=== PATIENT | male | born 1945 | race Caucasian/White ===

== ENCOUNTER 2020-12-09 09:47 | Outpatient (REF) | payer MEDICARE, OTHER, SELFPAY ==
[2020-12-09 10:00] LABS: MANUAL DIFF FLAG NO
[2020-12-09 10:02] LABS: Basophils Absolute Auto 0.1 X10*3/uL (0.0-0.2); Basophils Percent Auto 0.7 % (0-2); Eosinophils Absolute Auto 0.1 X10*3/uL (0.0-0.4); Imm Gran Abs Auto 0.02 X10*3/uL (0.00-0.03); Imm Gran Pct Auto 0.3 % (0.0-0.4); Lymphocytes Absolute Auto 1.4 X10*3/uL (1.2-4.9); Lymphocytes Percent Auto 19.8 % (20-40); Mean Corpuscular HGB Conc 34.9 g/dl (31.0-36.0); Mean Corpuscular Volume 100.5 fL (80-98); Mean Platelet Volume 10.5 fL (9.4-12.4); Monocytes Absolute Auto 0.6 X10*3/uL (0.1-1.2); Monocytes Percent Auto 8.7 % (2-11); Neutrophils Percent Auto 69.5 % (45-73); Platelet Count 211 X10*3/uL (160-400); Red Blood Count 4.28 X10*6/uL (4.60-5.80); Red Cell Distribution Width 12.9 % (11.0-16.0); White Blood Count 7.2 X10*3/uL (4.8-10.8)
[2020-12-09 10:33] LABS: Iron 148 mcg/dL (45-160); Percent Iron Saturation 59 % (15-50); Total Iron Binding Capacity 251 mcg/dL (228-428); Unsaturated Iron Binding 103 ug/dL
[2020-12-09 10:55] LABS: Ferritin 115 ng/mL (20-250)
== END 2020-12-09 09:48 | disposition home or self-care (01) ==
LOC: HO.BBR 09:47
PROVIDERS: Visit Provider Internal Medicine Hematology & Oncology
DX: E83.110 Hereditary hemochromatosis (principal)
CPT/HCPCS: 36415; 82728; 83540; 85025

== ENCOUNTER 2021-01-27 07:53 | Outpatient (REF) | payer MEDICARE, OTHER, SELFPAY ==
[2021-01-27 08:21] LABS: MANUAL DIFF FLAG NO
[2021-01-27 08:22] LABS: Basophils Absolute Auto 0.1 X10*3/uL (0.0-0.2); Basophils Percent Auto 1.2 % (0-2); Eosinophils Absolute Auto 0.1 X10*3/uL (0.0-0.4); Eosinophils Percent Auto 1.7 % (0-4); Hematocrit 42.8 % (42-52); Hemoglobin 14.9 g/dl (14.0-18.0); Imm Gran Abs Auto 0.01 X10*3/uL (0.00-0.03); Imm Gran Pct Auto 0.2 % (0.0-0.4); Lymphocytes Absolute Auto 1.3 X10*3/uL (1.2-4.9); Mean Corpuscular HGB Conc 34.8 g/dl (31.0-36.0); Mean Corpuscular Hemoglobin 35.2 pg (27.0-33.0); Mean Corpuscular Volume 101.2 fL (80-98); Mean Platelet Volume 10.5 fL (9.4-12.4); Monocytes Absolute Auto 0.7 X10*3/uL (0.1-1.2); Monocytes Percent Auto 11.4 % (2-11); Neutrophils Absolute Auto 3.6 X10*3/uL (2.0-8.3); Neutrophils Percent Auto 62.5 % (45-73); Platelet Count 199 X10*3/uL (160-400); Red Blood Count 4.23 X10*6/uL (4.60-5.80); Red Cell Distribution Width 12.5 % (11.0-16.0); White Blood Count 5.8 X10*3/uL (4.8-10.8)
[2021-01-27 09:24] LABS: Iron 147 mcg/dL (45-160); Percent Iron Saturation 55 % (15-50); Total Iron Binding Capacity 266 mcg/dL (228-428); Unsaturated Iron Binding 119 ug/dL
[2021-01-27 09:46] LABS: Ferritin 68 ng/mL (20-250)
== END 2021-01-27 07:54 | disposition home or self-care (01) ==
LOC: HO.BBR 07:53
PROVIDERS: Visit Provider Internal Medicine Hematology & Oncology
DX: E83.110 Hereditary hemochromatosis (principal)
CPT/HCPCS: 36415; 82728; 83540; 85025

== ENCOUNTER 2021-02-22 08:14 | Outpatient (REF) | payer MEDICARE, OTHER, SELFPAY ==
[2021-02-22 08:34] LABS: MANUAL DIFF FLAG NO
[2021-02-22 08:36] LABS: Basophils Absolute Auto 0.1 X10*3/uL (0.0-0.2); Basophils Percent Auto 0.7 % (0-2); Eosinophils Absolute Auto 0.1 X10*3/uL (0.0-0.4); Eosinophils Percent Auto 0.8 % (0-4); Hematocrit 41.2 % (42-52); Hemoglobin 14.2 g/dl (14.0-18.0); Imm Gran Abs Auto 0.02 X10*3/uL (0.00-0.03); Imm Gran Pct Auto 0.3 % (0.0-0.4); Lymphocytes Absolute Auto 1.3 X10*3/uL (1.2-4.9); Lymphocytes Percent Auto 17.3 % (20-40); Mean Corpuscular HGB Conc 34.5 g/dl (31.0-36.0); Mean Corpuscular Hemoglobin 34.7 pg (27.0-33.0); Mean Corpuscular Volume 100.7 fL (80-98); Mean Platelet Volume 10.7 fL (9.4-12.4); Monocytes Absolute Auto 0.7 X10*3/uL (0.1-1.2); Monocytes Percent Auto 9.6 % (2-11); Neutrophils Absolute Auto 5.2 X10*3/uL (2.0-8.3); Neutrophils Percent Auto 71.3 % (45-73); Platelet Count 188 X10*3/uL (160-400); Red Blood Count 4.09 X10*6/uL (4.60-5.80); Red Cell Distribution Width 12.4 % (11.0-16.0); White Blood Count 7.3 X10*3/uL (4.8-10.8)
[2021-02-22 09:16] LABS: Iron 133 mcg/dL (45-160); Percent Iron Saturation 45 % (15-50); Total Iron Binding Capacity 298 mcg/dL (228-428); Unsaturated Iron Binding 165 ug/dL
[2021-02-22 09:36] LABS: Ferritin 38 ng/mL (20-250)
== END 2021-02-22 08:15 | disposition home or self-care (01) ==
LOC: HO.BBR 08:14
PROVIDERS: PCP Internal Medicine; Visit Provider Internal Medicine Hematology & Oncology
DX: E83.110 Hereditary hemochromatosis (principal)
CPT/HCPCS: 36415; 82728; 83540; 85025

== ENCOUNTER 2021-03-29 07:59 | Outpatient (REF) | payer MEDICARE, OTHER, SELFPAY ==
[2021-03-29 08:15] LABS: MANUAL DIFF FLAG NO
[2021-03-29 08:18] LABS: Basophils Absolute Auto 0.1 X10*3/uL (0.0-0.2); Basophils Percent Auto 0.7 % (0-2); Eosinophils Absolute Auto 0.1 X10*3/uL (0.0-0.4); Eosinophils Percent Auto 1.4 % (0-4); Hematocrit 43.9 % (42-52); Imm Gran Abs Auto 0.02 X10*3/uL (0.00-0.03); Imm Gran Pct Auto 0.3 % (0.0-0.4); Lymphocytes Absolute Auto 1.6 X10*3/uL (1.2-4.9); Lymphocytes Percent Auto 22.3 % (20-40); Mean Corpuscular HGB Conc 34.2 g/dl (31.0-36.0); Mean Corpuscular Hemoglobin 33.9 pg (27.0-33.0); Mean Corpuscular Volume 99.3 fL (80-98); Mean Platelet Volume 10.9 fL (9.4-12.4); Monocytes Absolute Auto 0.8 X10*3/uL (0.1-1.2); Monocytes Percent Auto 11.2 % (2-11); Neutrophils Absolute Auto 4.7 X10*3/uL (2.0-8.3); Neutrophils Percent Auto 64.1 % (45-73); Platelet Count 185 X10*3/uL (160-400); Red Blood Count 4.42 X10*6/uL (4.60-5.80); Red Cell Distribution Width 12.7 % (11.0-16.0); White Blood Count 7.3 X10*3/uL (4.8-10.8)
[2021-03-29 09:12] LABS: Iron 273 mcg/dL (45-160)
[2021-03-29 11:54] LABS: Ferritin 40 ng/mL (20-250)
[2021-03-29 14:57] LABS: Total Iron Binding Capacity < 290 mcg/dL (228-428); Unsaturated Iron Binding < 17 ug/dL
== END 2021-03-29 08:00 | disposition home or self-care (01) ==
LOC: HO.BBR 07:59
PROVIDERS: PCP Internal Medicine; Visit Provider Internal Medicine Hematology & Oncology
DX: E83.110 Hereditary hemochromatosis (principal)
CPT/HCPCS: 36415; 82728; 83540; 85025

== ENCOUNTER 2021-05-03 07:53 | Outpatient (REF) | payer MEDICARE, OTHER, SELFPAY ==
[2021-05-03 08:10] LABS: MANUAL DIFF FLAG NO
[2021-05-03 08:11] LABS: Basophils Absolute Auto 0.1 X10*3/uL (0.0-0.2); Eosinophils Absolute Auto 0.1 X10*3/uL (0.0-0.4); Eosinophils Percent Auto 1.3 % (0-4); Hematocrit 41.6 % (42-52); Hemoglobin 14.5 g/dl (14.0-18.0); Imm Gran Abs Auto 0.02 X10*3/uL (0.00-0.03); Imm Gran Pct Auto 0.3 % (0.0-0.4); Lymphocytes Absolute Auto 1.5 X10*3/uL (1.2-4.9); Lymphocytes Percent Auto 21.1 % (20-40); Mean Corpuscular HGB Conc 34.9 g/dl (31.0-36.0); Mean Corpuscular Hemoglobin 34.4 pg (27.0-33.0); Mean Corpuscular Volume 98.8 fL (80-98); Mean Platelet Volume 10.5 fL (9.4-12.4); Monocytes Absolute Auto 0.8 X10*3/uL (0.1-1.2); Monocytes Percent Auto 11.3 % (2-11); Neutrophils Absolute Auto 4.7 X10*3/uL (2.0-8.3); Platelet Count 196 X10*3/uL (160-400); Red Blood Count 4.21 X10*6/uL (4.60-5.80); Red Cell Distribution Width 12.9 % (11.0-16.0); White Blood Count 7.2 X10*3/uL (4.8-10.8)
[2021-05-03 09:04] LABS: Iron 116 mcg/dL (45-160); Percent Iron Saturation 38 % (15-50); Total Iron Binding Capacity 306 mcg/dL (228-428); Unsaturated Iron Binding 190 ug/dL
[2021-05-03 09:15] LABS: Ferritin 37 ng/mL (20-250)
== END 2021-05-03 07:54 | disposition home or self-care (01) ==
LOC: HO.BBR 07:53
PROVIDERS: PCP Internal Medicine; Visit Provider Internal Medicine Hematology & Oncology
DX: E83.110 Hereditary hemochromatosis (principal)
CPT/HCPCS: 36415; 82728; 83540; 85025

== ENCOUNTER 2021-05-23 09:46 | Outpatient (REF) | payer MEDICARE, OTHER, SELFPAY | END 2021-05-23 09:47 | disposition home or self-care (01) | LOC: HO.BBR 09:46 | PROVIDERS: Visit Provider Internal Medicine Hematology & Oncology | DX: Z13.89 Encounter for screening for other disorder (principal) ==

== ENCOUNTER 2022-01-24 10:42 | Outpatient (REF) | payer MEDICARE, OTHER, SELFPAY ==
[2022-01-24 11:21] LABS: MANUAL DIFF FLAG NO
[2022-01-24 11:22] LABS: Basophils Absolute Auto 0.1 X10*3/uL (0.0-0.2); Basophils Percent Auto 0.8 % (0-2); Eosinophils Absolute Auto 0.1 X10*3/uL (0.0-0.4); Eosinophils Percent Auto 1.1 % (0-4); Hematocrit 41.4 % (42.0-52.0); Hemoglobin 14.2 g/dl (14.0-18.0); Imm Gran Abs Auto 0.01 X10*3/uL (0.00-0.03); Imm Gran Pct Auto 0.2 % (0.0-0.4); Lymphocytes Absolute Auto 1.6 X10*3/uL (1.2-4.9); Lymphocytes Percent Auto 23.6 % (20-40); Mean Corpuscular HGB Conc 34.3 g/dl (31.0-36.0); Mean Corpuscular Hemoglobin 33.7 pg (27.0-33.0); Mean Corpuscular Volume 98.3 fL (80.0-98.0); Mean Platelet Volume 10.7 fL (9.4-12.4); Monocytes Absolute Auto 0.7 X10*3/uL (0.1-1.2); Monocytes Percent Auto 10.5 % (2-11); Neutrophils Absolute Auto 4.2 x10*3/uL (2.0-8.3); Neutrophils Percent Auto 63.8 % (45-73); Platelet Count 214 X10*3/uL (160-400); Red Blood Count 4.21 X10*6/uL (4.60-5.80); Red Cell Distribution Width 13.6 % (11.0-16.0); White Blood Count 6.6 X10*3/uL (4.8-10.8)
[2022-01-24 12:08] LABS: Iron 231 mcg/dL (45-160); Percent Iron Saturation 92 % (15-50); Total Iron Binding Capacity 251 mcg/dL (228-428); Unsaturated Iron Binding 20 ug/dL
[2022-01-24 12:24] LABS: Ferritin 68 ng/mL (20-250)
== END 2022-01-24 10:43 | disposition home or self-care (01) ==
LOC: HO.BBR 10:42
PROVIDERS: Visit Provider Internal Medicine Hematology & Oncology
DX: E83.110 Hereditary hemochromatosis (principal)
CPT/HCPCS: 36415; 82728; 83540; 85025

== ENCOUNTER 2022-02-22 09:34 | Outpatient (REF) | payer MEDICARE, OTHER, SELFPAY ==
[2022-02-22 10:03] LABS: MANUAL DIFF FLAG NO
[2022-02-22 10:07] LABS: Basophils Absolute Auto 0.1 X10*3/uL (0.0-0.2); Eosinophils Absolute Auto 0.1 X10*3/uL (0.0-0.4); Eosinophils Percent Auto 2.1 % (0-4); Hematocrit 39.5 % (42.0-52.0); Hemoglobin 13.4 g/dl (14.0-18.0); Imm Gran Abs Auto 0.01 X10*3/uL (0.00-0.03); Imm Gran Pct Auto 0.2 % (0.0-0.4); Lymphocytes Absolute Auto 1.1 X10*3/uL (1.2-4.9); Lymphocytes Percent Auto 17.4 % (20-40); Mean Corpuscular HGB Conc 33.9 g/dl (31.0-36.0); Mean Corpuscular Hemoglobin 33.8 pg (27.0-33.0); Mean Corpuscular Volume 99.5 fL (80.0-98.0); Mean Platelet Volume 10.6 fL (9.4-12.4); Monocytes Absolute Auto 0.9 X10*3/uL (0.1-1.2); Monocytes Percent Auto 13.8 % (2-11); Neutrophils Absolute Auto 4.1 x10*3/uL (2.0-8.3); Neutrophils Percent Auto 65.5 % (45-73); Platelet Count 190 X10*3/uL (160-400); Red Blood Count 3.97 X10*6/uL (4.60-5.80); Red Cell Distribution Width 13.5 % (11.0-16.0); White Blood Count 6.3 X10*3/uL (4.8-10.8)
[2022-02-22 11:07] LABS: Iron 186 mcg/dL (45-160); Percent Iron Saturation 61 % (15-50); Total Iron Binding Capacity 305 mcg/dL (228-428); Unsaturated Iron Binding 119 ug/dL
[2022-02-22 11:27] LABS: Ferritin 39 ng/mL (20-250)
== END 2022-02-22 09:35 | disposition home or self-care (01) ==
LOC: HO.BBR 09:34
PROVIDERS: Visit Provider Internal Medicine Hematology & Oncology
DX: E83.110 Hereditary hemochromatosis (principal)
CPT/HCPCS: 36415; 82728; 83540; 85025

== ENCOUNTER 2022-04-05 10:00 | Outpatient (REF) | payer MEDICARE, OTHER, SELFPAY ==
[2022-04-05 10:28] LABS: MANUAL DIFF FLAG NO
[2022-04-05 10:29] LABS: Basophils Absolute Auto 0.1 X10*3/uL (0.0-0.2); Basophils Percent Auto 1.1 % (0-2); Eosinophils Absolute Auto 0.1 X10*3/uL (0.0-0.4); Eosinophils Percent Auto 1.7 % (0-4); Hematocrit 41.8 % (42.0-52.0); Hemoglobin 14.3 g/dl (14.0-18.0); Imm Gran Abs Auto 0.02 X10*3/uL (0.00-0.03); Imm Gran Pct Auto 0.3 % (0.0-0.4); Lymphocytes Absolute Auto 1.6 X10*3/uL (1.2-4.9); Lymphocytes Percent Auto 24.6 % (20-40); Mean Corpuscular HGB Conc 34.2 g/dl (31.0-36.0); Mean Corpuscular Hemoglobin 33.3 pg (27.0-33.0); Mean Corpuscular Volume 97.2 fL (80.0-98.0); Mean Platelet Volume 10.4 fL (9.4-12.4); Monocytes Absolute Auto 0.8 X10*3/uL (0.1-1.2); Monocytes Percent Auto 11.7 % (2-11); Neutrophils Absolute Auto 3.9 x10*3/uL (2.0-8.3); Neutrophils Percent Auto 60.6 % (45-73); Platelet Count 229 X10*3/uL (160-400); Red Cell Distribution Width 12.4 % (11.0-16.0); White Blood Count 6.5 X10*3/uL (4.8-10.8)
[2022-04-05 11:10] LABS: Iron 40 mcg/dL (45-160); Percent Iron Saturation 12 % (15-50); Total Iron Binding Capacity 347 mcg/dL (228-428); Unsaturated Iron Binding 307 ug/dL
[2022-04-05 11:32] LABS: Ferritin 26 ng/mL (20-250)
== END 2022-04-05 10:01 | disposition home or self-care (01) ==
LOC: HO.BBR 10:00
PROVIDERS: Visit Provider Internal Medicine Hematology & Oncology
DX: E83.110 Hereditary hemochromatosis (principal)
CPT/HCPCS: 36415; 82728; 83540; 85025

== ENCOUNTER 2022-05-23 08:00 | Outpatient (REF) | payer MEDICARE, OTHER, SELFPAY ==
[2022-05-23 08:20] LABS: MANUAL DIFF FLAG NO
[2022-05-23 08:22] LABS: Basophils Absolute Auto 0.1 X10*3/uL (0.0-0.2); Basophils Percent Auto 1.4 % (0-2); Eosinophils Absolute Auto 0.2 X10*3/uL (0.0-0.4); Eosinophils Percent Auto 2.4 % (0-4); Hematocrit 39.9 % (42.0-52.0); Hemoglobin 13.2 g/dl (14.0-18.0); Imm Gran Abs Auto 0.03 X10*3/uL (0.00-0.03); Imm Gran Pct Auto 0.4 % (0.0-0.4); Lymphocytes Absolute Auto 1.9 X10*3/uL (1.2-4.9); Lymphocytes Percent Auto 23.6 % (20-40); Mean Corpuscular HGB Conc 33.1 g/dl (31.0-36.0); Mean Corpuscular Hemoglobin 31.1 pg (27.0-33.0); Mean Corpuscular Volume 93.9 fL (80.0-98.0); Mean Platelet Volume 10.3 fL (9.4-12.4); Monocytes Absolute Auto 0.9 X10*3/uL (0.1-1.2); Monocytes Percent Auto 11.7 % (2-11); Neutrophils Absolute Auto 4.7 x10*3/uL (2.0-8.3); Neutrophils Percent Auto 60.5 % (45-73); Platelet Count 274 X10*3/uL (160-400); Red Blood Count 4.25 X10*6/uL (4.60-5.80); Red Cell Distribution Width 12.8 % (11.0-16.0); White Blood Count 7.8 X10*3/uL (4.8-10.8)
[2022-05-23 08:59] LABS: Iron 77 mcg/dL (45-160); Percent Iron Saturation 24 % (15-50); Total Iron Binding Capacity 316 mcg/dL (228-428); Unsaturated Iron Binding 239 ug/dL
[2022-05-23 09:20] LABS: Ferritin 30 ng/mL (20-250)
== END 2022-05-23 08:01 | disposition home or self-care (01) ==
LOC: HO.BBR 08:00
PROVIDERS: Visit Provider Internal Medicine Hematology & Oncology
DX: E83.110 Hereditary hemochromatosis (principal)
CPT/HCPCS: 36415; 82728; 83540; 85025

== ENCOUNTER 2022-12-12 07:56 | Outpatient (REF) | payer MEDICARE, OTHER, SELFPAY ==
[2022-12-12 08:12] LABS: MANUAL DIFF FLAG NO
[2022-12-12 08:14] LABS: Basophils Absolute Auto 0.1 X10*3/uL (0.0-0.2); Basophils Percent Auto 1.5 % (0-2); Eosinophils Absolute Auto 0.1 X10*3/uL (0.0-0.4); Hematocrit 42.5 % (42.0-52.0); Hemoglobin 14.6 g/dl (14.0-18.0); Imm Gran Abs Auto 0.02 X10*3/uL (0.00-0.03); Imm Gran Pct Auto 0.4 % (0.0-0.4); Lymphocytes Absolute Auto 1.5 X10*3/uL (1.2-4.9); Lymphocytes Percent Auto 26.7 % (20-40); Mean Corpuscular HGB Conc 34.4 g/dl (31.0-36.0); Mean Corpuscular Hemoglobin 33.3 pg (27.0-33.0); Mean Corpuscular Volume 96.8 fL (80.0-98.0); Mean Platelet Volume 10.4 fL (9.4-12.4); Monocytes Absolute Auto 0.6 X10*3/uL (0.1-1.2); Monocytes Percent Auto 11.8 % (2-11); Neutrophils Absolute Auto 3.1 x10*3/uL (2.0-8.3); Neutrophils Percent Auto 57.6 % (45-73); Platelet Count 196 X10*3/uL (160-400); Red Blood Count 4.39 X10*6/uL (4.60-5.80); Red Cell Distribution Width 14.6 % (11.0-16.0); White Blood Count 5.4 X10*3/uL (4.8-10.8)
[2022-12-12 09:47] LABS: Iron 99 mcg/dL (45-160); Percent Iron Saturation 42 % (15-50); Total Iron Binding Capacity 234 mcg/dL (228-428); Unsaturated Iron Binding 135 ug/dL
[2022-12-12 09:49] LABS: Ferritin 51 ng/mL (20-250)
== END 2022-12-12 07:57 | disposition home or self-care (01) ==
LOC: HO.BBR 07:56
PROVIDERS: Visit Provider Internal Medicine Hematology & Oncology
DX: E83.110 Hereditary hemochromatosis (principal)
CPT/HCPCS: 36415; 82728; 83540; 85025

== ENCOUNTER 2023-01-15 07:59 | Outpatient (REF) | payer MEDICARE, OTHER, SELFPAY ==
[2023-01-15 08:23] LABS: MANUAL DIFF FLAG NO
[2023-01-15 08:25] LABS: Basophils Absolute Auto 0.1 X10*3/uL (0.0-0.2); Basophils Percent Auto 1.1 % (0-2); Eosinophils Absolute Auto 0.2 X10*3/uL (0.0-0.4); Eosinophils Percent Auto 2.1 % (0-4); Hematocrit 39.6 % (42.0-52.0); Hemoglobin 13.5 g/dl (14.0-18.0); Imm Gran Abs Auto 0.02 X10*3/uL (0.00-0.03); Imm Gran Pct Auto 0.2 % (0.0-0.4); Lymphocytes Absolute Auto 1.6 X10*3/uL (1.2-4.9); Lymphocytes Percent Auto 19.8 % (20-40); Mean Corpuscular HGB Conc 34.1 g/dl (31.0-36.0); Mean Corpuscular Hemoglobin 33.7 pg (27.0-33.0); Mean Corpuscular Volume 98.8 fL (80.0-98.0); Mean Platelet Volume 10.5 fL (9.4-12.4); Monocytes Absolute Auto 0.8 X10*3/uL (0.1-1.2); Monocytes Percent Auto 10.2 % (2-11); Neutrophils Absolute Auto 5.5 x10*3/uL (2.0-8.3); Neutrophils Percent Auto 66.6 % (45-73); Platelet Count 212 X10*3/uL (160-400); Red Blood Count 4.01 X10*6/uL (4.60-5.80); Red Cell Distribution Width 13.9 % (11.0-16.0); White Blood Count 8.2 X10*3/uL (4.8-10.8)
[2023-01-15 09:37] LABS: Iron 104 mcg/dL (45-160); Percent Iron Saturation 36 % (15-50); Total Iron Binding Capacity 289 mcg/dL (228-428); Unsaturated Iron Binding 185 ug/dL
[2023-01-15 09:51] LABS: Ferritin 50 ng/mL (20-250)
== END 2023-01-15 08:00 | disposition home or self-care (01) ==
LOC: HO.BBR 07:59
PROVIDERS: Visit Provider Internal Medicine Hematology & Oncology
DX: E83.110 Hereditary hemochromatosis (principal)
CPT/HCPCS: 36415; 82728; 83540; 85025

== ENCOUNTER 2023-02-14 08:02 | Outpatient (REF) | payer MEDICARE, OTHER, SELFPAY ==
[2023-02-14 08:26] LABS: MANUAL DIFF FLAG NO
[2023-02-14 08:27] LABS: Basophils Absolute Auto 0.1 X10*3/uL (0.0-0.2); Basophils Percent Auto 1.2 % (0-2); Eosinophils Absolute Auto 0.1 X10*3/uL (0.0-0.4); Eosinophils Percent Auto 1.6 % (0-4); Hemoglobin 12.4 g/dl (14.0-18.0); Imm Gran Abs Auto 0.01 X10*3/uL (0.00-0.03); Imm Gran Pct Auto 0.1 % (0.0-0.4); Lymphocytes Absolute Auto 1.7 X10*3/uL (1.2-4.9); Lymphocytes Percent Auto 24.3 % (20-40); Mean Corpuscular HGB Conc 33.5 g/dl (31.0-36.0); Mean Corpuscular Hemoglobin 32.9 pg (27.0-33.0); Mean Corpuscular Volume 98.1 fL (80.0-98.0); Mean Platelet Volume 10.7 fL (9.4-12.4); Monocytes Absolute Auto 0.7 X10*3/uL (0.1-1.2); Monocytes Percent Auto 10.3 % (2-11); Neutrophils Absolute Auto 4.3 x10*3/uL (2.0-8.3); Neutrophils Percent Auto 62.5 % (45-73); Platelet Count 220 X10*3/uL (160-400); Red Blood Count 3.77 X10*6/uL (4.60-5.80); Red Cell Distribution Width 12.5 % (11.0-16.0); White Blood Count 6.8 X10*3/uL (4.8-10.8)
[2023-02-14 09:53] LABS: Iron 54 mcg/dL (45-160); Percent Iron Saturation 18 % (15-50); Total Iron Binding Capacity 307 mcg/dL (228-428); Unsaturated Iron Binding 253 ug/dL
[2023-02-14 10:16] LABS: Ferritin 25 ng/mL (20-250)
== END 2023-02-14 08:03 | disposition home or self-care (01) ==
LOC: HO.BBR 08:02
PROVIDERS: Visit Provider Internal Medicine Hematology & Oncology
DX: E83.110 Hereditary hemochromatosis (principal)
CPT/HCPCS: 36415; 82728; 83540; 85025

== ENCOUNTER 2023-03-13 08:51 | Outpatient (REF) | payer MEDICARE, OTHER, SELFPAY ==
[2023-03-13 09:19] LABS: MANUAL DIFF FLAG NO
[2023-03-13 09:21] LABS: Basophils Absolute Auto 0.1 X10*3/uL (0.0-0.2); Basophils Percent Auto 1.2 % (0-2); Eosinophils Absolute Auto 0.1 X10*3/uL (0.0-0.4); Eosinophils Percent Auto 1.2 % (0-4); Hematocrit 41.5 % (42.0-52.0); Hemoglobin 13.8 g/dl (14.0-18.0); Imm Gran Abs Auto 0.01 X10*3/uL (0.00-0.03); Imm Gran Pct Auto 0.2 % (0.0-0.4); Lymphocytes Absolute Auto 1.6 X10*3/uL (1.2-4.9); Lymphocytes Percent Auto 27.1 % (20-40); Mean Corpuscular HGB Conc 33.3 g/dl (31.0-36.0); Mean Corpuscular Hemoglobin 31.9 pg (27.0-33.0); Mean Corpuscular Volume 95.8 fL (80.0-98.0); Mean Platelet Volume 10.9 fL (9.4-12.4); Monocytes Absolute Auto 0.7 X10*3/uL (0.1-1.2); Monocytes Percent Auto 11.2 % (2-11); Neutrophils Absolute Auto 3.4 x10*3/uL (2.0-8.3); Neutrophils Percent Auto 59.1 % (45-73); Platelet Count 208 X10*3/uL (160-400); Red Blood Count 4.33 X10*6/uL (4.60-5.80); Red Cell Distribution Width 12.9 % (11.0-16.0); White Blood Count 5.8 X10*3/uL (4.8-10.8)
[2023-03-13 11:05] LABS: Iron 54 mcg/dL (45-160); Percent Iron Saturation 18 % (15-50); Total Iron Binding Capacity 299 mcg/dL (228-428); Unsaturated Iron Binding 245 ug/dL
[2023-03-13 11:18] LABS: Ferritin 28 ng/mL (20-250)
== END 2023-03-13 08:52 | disposition home or self-care (01) ==
LOC: HO.BBR 08:51
PROVIDERS: Visit Provider Internal Medicine Hematology & Oncology
DX: E83.110 Hereditary hemochromatosis (principal)
CPT/HCPCS: 36415; 82728; 83540; 85025

== ENCOUNTER 2023-05-14 08:03 | Outpatient (REF) | payer MEDICARE, OTHER, SELFPAY | END 2023-05-14 08:04 | disposition home or self-care (01) | LOC: HO.BBR 08:03 | PROVIDERS: PCP Internal Medicine; Visit Provider Internal Medicine Hematology & Oncology | DX: E83.110 Hereditary hemochromatosis (principal) | CPT/HCPCS: 36415; 82728; 83540; 85025 ==

== ENCOUNTER 2023-12-11 08:10 | Outpatient (REF) | payer MEDICARE, OTHER, SELFPAY ==
[2023-12-11 08:27] LABS: MANUAL DIFF FLAG NO
[2023-12-11 08:30] LABS: Basophils Absolute Auto 0.1 X10*3/uL (0.0-0.2); Basophils Percent Auto 1.2 % (0-2); Eosinophils Absolute Auto 0.1 X10*3/uL (0.0-0.4); Eosinophils Percent Auto 1.2 % (0-4); Hemoglobin 13.8 g/dl (14.0-18.0); Imm Gran Abs Auto 0.02 X10*3/uL (0.00-0.03); Imm Gran Pct Auto 0.3 % (0.0-0.4); Lymphocytes Absolute Auto 1.3 X10*3/uL (1.2-4.9); Lymphocytes Percent Auto 19.4 % (20-40); Mean Corpuscular HGB Conc 35.4 g/dl (31.0-36.0); Mean Corpuscular Hemoglobin 35.8 pg (27.0-33.0); Mean Corpuscular Volume 101.3 fL (80.0-98.0); Mean Platelet Volume 10.9 fL (9.4-12.4); Monocytes Absolute Auto 0.6 X10*3/uL (0.1-1.2); Monocytes Percent Auto 9.4 % (2-11); Neutrophils Absolute Auto 4.7 x10*3/uL (2.0-8.3); Neutrophils Percent Auto 68.5 % (45-73); Platelet Count 207 X10*3/uL (160-400); Red Blood Count 3.85 X10*6/uL (4.60-5.80); Red Cell Distribution Width 13.2 % (11.0-16.0); White Blood Count 6.8 X10*3/uL (4.8-10.8)
[2023-12-11 09:24] LABS: Iron 190 mcg/dL (45-160); Percent Iron Saturation 78 % (15-50); Total Iron Binding Capacity 245 mcg/dL (228-428); Unsaturated Iron Binding 55 ug/dL
[2023-12-11 09:28] LABS: Ferritin 97 ng/mL (20-250)
== END 2023-12-11 08:11 | disposition home or self-care (01) ==
LOC: HO.BBR 08:10
PROVIDERS: PCP Internal Medicine; Visit Provider Internal Medicine Hematology & Oncology
DX: E83.110 Hereditary hemochromatosis (principal)
CPT/HCPCS: 36415; 82728; 83540; 85025

== ENCOUNTER 2024-01-28 10:55 | Outpatient (REF) | payer MEDICARE, OTHER, SELFPAY ==
[2024-01-28 11:26] LABS: MANUAL DIFF FLAG NO
[2024-01-28 11:29] LABS: Basophils Absolute Auto 0.1 X10*3/uL (0.0-0.2); Basophils Percent Auto 1.2 % (0-2); Eosinophils Absolute Auto 0.1 X10*3/uL (0.0-0.4); Eosinophils Percent Auto 1.4 % (0-4); Hematocrit 42.6 % (42.0-52.0); Hemoglobin 15.1 g/dl (14.0-18.0); Imm Gran Abs Auto 0.04 X10*3/uL (0.00-0.03); Imm Gran Pct Auto 0.4 % (0.0-0.4); Lymphocytes Absolute Auto 2.2 X10*3/uL (1.2-4.9); Lymphocytes Percent Auto 22.7 % (20-40); Mean Corpuscular HGB Conc 35.4 g/dl (31.0-36.0); Mean Corpuscular Hemoglobin 35.3 pg (27.0-33.0); Mean Corpuscular Volume 99.5 fL (80.0-98.0); Mean Platelet Volume 10.7 fL (9.4-12.4); Monocytes Percent Auto 10.6 % (2-11); Neutrophils Absolute Auto 6.1 x10*3/uL (2.0-8.3); Neutrophils Percent Auto 63.7 % (45-73); Platelet Count 205 X10*3/uL (160-400); Red Blood Count 4.28 X10*6/uL (4.60-5.80); Red Cell Distribution Width 12.9 % (11.0-16.0); White Blood Count 9.6 X10*3/uL (4.8-10.8)
[2024-01-28 12:49] LABS: Ferritin 86 ng/mL (20-250); Iron 276 mcg/dL (45-160); Percent Iron Saturation 92 % (15-50); Total Iron Binding Capacity 301 mcg/dL (228-428); Unsaturated Iron Binding < 25 ug/dL
== END 2024-01-28 10:56 | disposition home or self-care (01) ==
LOC: HO.BBR 10:55
PROVIDERS: PCP Internal Medicine; Visit Provider Internal Medicine Hematology & Oncology
DX: E83.110 Hereditary hemochromatosis (principal)
CPT/HCPCS: 36415; 82728; 83540; 85025

== ENCOUNTER 2024-02-28 08:03 | Outpatient (REF) | payer MEDICARE, OTHER, SELFPAY | END 2024-02-28 08:04 | disposition home or self-care (01) | LOC: HO.BBR 08:03 | PROVIDERS: PCP Internal Medicine; Visit Provider Physician Assistant Medical | DX: Z13.89 Encounter for screening for other disorder (principal) ==

== ENCOUNTER 2024-04-08 08:06 | Outpatient (REF) | payer MEDICARE, OTHER, SELFPAY | END 2024-04-08 08:07 | disposition home or self-care (01) | LOC: HO.BBR 08:06 | PROVIDERS: PCP Internal Medicine; Visit Provider Physician Assistant Medical | DX: Z13.89 Encounter for screening for other disorder (principal) ==

== ENCOUNTER 2024-05-19 08:02 | Outpatient (REF) | payer MEDICARE, OTHER, SELFPAY | END 2024-05-19 08:03 | disposition home or self-care (01) | LOC: HO.BBR 08:02 | PROVIDERS: PCP Internal Medicine; Visit Provider Physician Assistant Medical | DX: Z13.89 Encounter for screening for other disorder (principal) ==

== ENCOUNTER 2025-02-15 10:25 | Outpatient (REF) | payer MEDICARE, OTHER, SELFPAY ==
--- OUTSIDE RECORDS SUMMARY | 2025-02-15 11:08 | XMS_ITS | Clinical Summary ---
Author Organization [facility] Address [address] [facility], [place] [address] Phone Care Team Providers Care Router Tender Name Role Phone Arturo Moctezuma MD Primary Care Provider [phone] Allergies No known active allergies Medications levothyroxine (SYNTHROID, LEVOTHROID) 112 mcg tablet Take 1 tablet (112 mcg total) by mouth 1 (one) time each day. Active apixaban (ELIQUIS) 5 mg tablet Take 1 tablet (5 mg total) by mouth 2 (two) times a day. 60 each 11 4 06/24/20 25 Active metoprolol tartrate (LOPRESSOR) 25 mg tablet Take 1 tablet (25 mg total) by mouth 2 (two) times a day. 60 each 11 4 06/24/20 25 Active aspirin 81 mg chewable tablet CHEW 1 TABLET BY MOUTH EVERY DAY 90 tablet 3 4 Active Additional Information Patient not taking.Reported on 11/09/2024 Active Problems Problem Noted Date Diagnosed Date History of transcatheter aortic valve replacemen t (TAVR) 09/14/2024 Assessment & Plan (11/10/2024 9:50 AM EDT): Status post TAVR with excellent clinical response and normally functioning aortic valve and most recent echocardiogram. Continue Eliquis for concurrent atrial fibrillation which is sufficiently protective for the prosthetic aortic valve. Will plan for follow-up in the TAVR clinic and echocardiogram in around 1 year. His episodes of double vision do not sound to be consistent with a cardiac etiology. I do not believe that there is a strong reason to continue with Lasix therapy and it is possible although inconclusive that he could have orthostatic hypotension causing episodes of vision changes. I recommended discontinuing Lasix as this was prescribed solely for management of severe aortic stenosis prior to TAVR. I did encourage him to plan to follow-up with ophthalmology Assessment & Plan (09/14/2024 12:17 PM EST): Status post TAVR with excellent clinical response. No significant dyspnea or exertional intolerance. He is to continue on Eliquis given his history of atrial fibrillation which is sufficient to protect his prosthetic heart valve. He has appointments for echocardiogram and follow-up with myself in November. He is aware of need for prophylactic antibiotics prior to invasive procedures. We discussed his rhythm monitor which will let us know if he has any concerning arrhythmias although I am not anticipating this will be an issue for him. Hereditary hemochromatosis (CMS/HCC V24) 024 Assessment & Plan (06/11/2024 12:50 PM EST): The patient has hereditary hemochromatosis. He was followed by Dr. Rosas in [place] until his nursing home last year. I will ask Dr. Moctezuma to provide records. It may be helpful to involve a new auction assistant. Carotid bruit 06/10/2024 Assessment & Plan (06/11/2024 12:50 PM EST): Noncritical carotid disease with less than 50% narrowing bilaterally. Bruits are most likely reflecting transmitted aortic valve murmur. Orders: Pulse oximetry, spot ECG 12 lead HTN (hypertension) 06/10/2024 Assessment & Plan (06/11/2024 12:50 PM EST): Blood pressures have been well-controlled. The patient will continue on low-dose metoprolol as well as low-dose furosemide. Orders: Pulse oximetry, spot ECG 12 lead Hypercholesterolemia 06/10/2024 Assessment & Plan (06/11/2024 12:50 PM EST): At this time I will obtain results of prior laboratory data to assess. It does not appear that the patient is on lipid-lowering therapy at this time. Orders: Pulse oximetry, spot ECG 12 lead SVT (supraventricular tachycardia) (CMS/HCC V24) 06/10/2024 Atrial flutter (CMS/HCC V24, CMS/HCC V28) 2023 Paroxysmal A-fib (CMS/HCC V24, CMS/HCC V28) 01/2024 Assessment & Plan (06/11/2024 12:50 PM EST): The patient had recurrent PSVT in 2007. He underwent an ablation procedure by Dr. Borges. He has not had any recurrence of atrial fibrillation until recently. He was hospitalized with new onset atrial fibrillation in the setting of severe aortic stenosis and congestive heart failure. He responded favorably to medical therapy. He is back in sinus rhythm at this time. He was not treated with antiarrhythmic therapy or with cardioversion during his recent hospitalization. Eliquis will be continued. The patient will also stay on aspirin. Orders: Pulse oximetry, spot ECG 12 lead Resolved Problems Problem Noted Date Diagnosed Date Resolved Date Non-rheumatic aortic stenosis 06/10/2024 09/14/2024 Assessment & Plan (06/29/2024 1:56 PM EST): Severe aortic stenosis with recent hospitalization for congestive heart failure and atrial fibrillation. Cardiac catheterization did not demonstrate significant CAD. He appears to be an excellent candidate for TAVR. We had a discussion of the natural history of aortic stenosis and the management options which include continued medical therapy, transcatheter aortic valve replacement, surgical aortic valve replacement or palliative care. We reviewed the risk and benefits of these approaches and decided to proceed with an evaluation for TAVR. Periprocedural risks with estimated likelihood include stroke at 2%, permanent pacemaker at 8 to 10%, major bleeding at 3%, vascular complication at 1 to 2%, and at 1 to 2%. The patient accepts these risks and would like to proceed. The evaluation process will include evaluation by cardiothoracic surgery and a TAVR CTA. The studies will be arranged in coordination with our office and the TAVR coordinators at the [facility] structural heart disease program. After all the studies have been completed the patient's care will be reviewed in a multidisciplinary meeting in the next steps will be determined. As they are renting a house locally until his aortic valve is replaced I will try to expedite the process. Assessment & Plan (06/11/2024 12:50 PM EST): The patient has a longstanding systolic murmur. He was found to have mild to moderate aortic stenosis in 2021 with a mean transvalvular gradient of 16 mmHg and a dimensionless index of 0.28. Calculated aortic valve area was 1.1 cm . The patient was asymptomatic until he recently presented to [facility] in [place], [place] with evidence of breathlessness and fatigue while lawn mowing. He had new onset atrial fibrillation and overt congestive heart failure which responded to medical therapy and diuresis. Echocardiography demonstrated severe aortic stenosis with a mean transvalvular gradient of 42 mmHg. The patient continues to have an element of fatigue. He has dramatically reduced his activities. His examination strongly suggests that aortic stenosis is critical. The patient appears to be a suitable candidate for aortic valve replacement. We discussed surgical and catheter-based options for aortic valve replacement. The patient has been generally healthy. He has had mild carotid atherosclerosis without significant obstruction. He does have a history of hemochromatosis. This has been treated with intermittent bloodletting. I discussed with the patient and his loving and attentive the approach to workup for potential TAVR. I will make arrangements for coronary angiography to be performed at [facility] by myself on June 25, 2024. He will stay on aspirin and will discontinue Eliquis 2 days prior to the procedure. A right radial approach will be utilized. I will also discuss his ongoing evaluation with one of my interventional colleagues and arrange outpatient consultation as a prelude a pre-TAVR CT scan and cardiac surgical consultation. Orders: Pulse oximetry, spot ECG 12 lead Medical History Medical History Date Comments IFG (impaired fasting glucose) Osteoarthritis Hemochromatosis Hx of malignant neoplasm of prostate Social History Tobacco Use Types Packs/Day Years Used Date Smoking Tobacco: Never Smokeless Tobacco: Never Tobacco Cessation:Counseling Given: Not Answered Alcohol Use Standard Drinks/Week Comments Not Currently 0 (1 standard drink = 0.6 oz pur e alcohol) Sex and Gender Information Value Date Recorded Sex Assigned at Male 06/25/2024 8:02 AM EST Legal Sex Male 8:01 AM EST Gender Identity Male 06/25/2024 8:02 AM EST Sexual Orientation Straight 06/25/2024 8: 02 AM EST Obstetrics History Last Filed Vital Signs Vital Sign Reading Time Taken Comments Blood Pressure 108/66 11/09/2024 2:34 PM EDT Pulse 70 11/09/2024 2:34 PM EDT Temperature 36.7 C (98.1 F) 06/25/2024 8:20 AM EST Respiratory Rate 13 06/25/2024 12:00 PM EST Oxygen Saturation 98% 11/09/2024 2:34 PM EDT Inhaled Oxygen Concentration - - Weight 68.5 kg (151 lb) 11/09/2024 2:34 PM EDT Height 175.3 cm (5' 9 ) 11/09/2024 2:34 PM EDT Body Mass Index 22.3 11/09/2024 2:34 PM EDT Plan of Treatment Health Maintenance Due Date Last Done Comments Pneumococcal Vaccine: 50+ Years (2 of 2 - PCV) 12/26/2016 12/27/2015, 10/28/2012 Cholesterol Screening (Lipid Panel) 07/08/2022 Falls Risk Assessment 07/08/2022 Medicare Annual Wellness Visit 07/08/2022 Social Influencers of Health Screening 07/08/2022 COVID-19 Vaccine ( season) 2024 04/23/2024, 05/10/2022, 01/05/2021, Additional history exists Influenza Vaccine (#1) 2025 , 04/26/2023, 04/30/2022, Additional history exists Depression Screening 05/31/2025 05/31/2024 Hypertension/CHF/CAD Annual BMP Blood Test 06/03/2025 06/03/2024, 06/03/2024, 06/02/2024, Additional history exists DTaP,Tdap,and Td Vaccines (2 - Td or Tdap) 01/27/2034 01/28/2024 Zoster Vaccines Completed 04/30/2022, 02/21/2022 RSV Immunization Adult Patients Completed 05/04/2024 HIB Vaccines Aged Out No longer eligi ble based on patient's age to complete this topic HPV Vaccines Aged Out No longer eligi ble based on patient's age to complete this topic Hepatitis A Vaccines Aged Out No long er eligible based on patient's age to complete this topic Hepatitis B Vaccines Aged Out No long er eligible based on patient's age to complete this topic IPV Vaccines Aged Out No longer eligi ble based on patient's age to complete this topic MMR Vaccines Aged Out No longer eligi ble based on patient's age to complete this topic Meningococcal ACWY Vaccine Aged Out N o longer eligible based on patient's age to complete this topic Meningococcal B Vaccine Aged Out No l onger eligible based on patient's age to complete this topic RSV Immunization Patients Under 20 months Aged Out No longer eligible based on patient's age to complete this topic Varicella Vaccines Aged Out No longer eligible based on patient's age to complete this topic Insurance [facility] Advance Directives * Full Code - Default (Latest Code Status on File) Date Activated Date Inactivated Comments 06/25/2024 8:32 AM 06/26/2024 4:55 AM This is or briana is used when code status has not been discussed with the patient, or code status is otherwise unknown/unconfirmed To update the patient's code status, place a code status order. Do not modify or discontinue any currently active code status orders. Care Teams Router Tender Relationship Specialty Start Date End Date Arturo Moctezuma MD [address] [place] [address] PCP - General Internal Medicine 06/05/24
--- OUTSIDE RECORDS SUMMARY | 2025-02-15 11:08 | XMS_ITS | Clinical Summary ---
Author Organization [address] Address [address] [place] [phone] Phone Care Team Providers Care Labor Expediter Name Role Phone Arturo Moctezuma MD Primary Care Provider [phone] Allergies No known active allergies Medications levothyroxine (SYNTHROID, LEVOTHROID) 112 MCG tablet Take 1 tablet (112 mcg total) by mouth daily. Active aspirin 81 mg EC delayed release tablet Take 1 tablet (81 mg total) by mouth daily. Active apixaban (ELIQUIS) 5 mg tablet Take 1 tablet (5 mg total) by mouth every 12 (twelve) hours. 60 tablet 06/03/2024 Active furosemide (LASIX) 20 mg tablet Take 1 tablet (20 mg total) by mouth daily. 30 tablet 06/04/2024 Active metoprolol tartrate (LOPRESSOR) 25 mg Immediate Release tablet Take 1 tablet (25 mg total) by mouth 2 (two) times daily. 60 tablet 06/03/2024 Active Active Problems Problem Noted Date Diagnosed Date Pneumonia due to organism 05/31/2024 Immunizations Immunization Administration Dates Next Due Influenza, high-dose, split virus, trivalent,(65Yr+),injectable, preservative free 04/23/2024 RSV, recombinant, adjuvant, adult IM (Arexvy) Social History Tobacco Use Types Packs/Day Years Used Date Smoking Tobacco: Never Assessed [facility] Utilities Answer Date Recorded In the past 12 months has CiRBA, [place], oil, or water [facility] threatened to shut off services in your home? No 05/31/2024 AUDIT-C Answer Date Recorded Q1: How often do you have a drink containing alc ohol? Monthly or less 05/31/2024 Q2: How many drinks containi ng alcohol do you have on a typical day when you are drinking? 1 or 2 05/31/2024 Q3: How often do you have si x or more drinks on one occasion? Never 05/31/2024 PHQ-2 Answer Date Recorded PHQ-2 Total Score 0 05/31/2024 Hunger Vital Sign Answer Date Recorded Within the past 12 months, y ou worried that your food would run out before you got the money to buy more. Never true 05/31/20 24 Within the past 12 months, t he food you bought just didn't last and you didn't have money to get more. Never true 05/31/2024 PRAPARE - Transportation Answer Date Re corded In the past 12 months, has l ack of transportation kept you from medical appointments or from getting medications? No 05/06 In the past 12 months, has l ack of transportation kept you from meetings, work, or from getting things needed for daily living? No 05/31/2024 Housing Stability Answer Date Recorded What is your living situation today? I have a [facility] place to live 05/31/2024 Housing Stability Not on file 05/31/2024 Interpersonal Safety Answer Date Record ed Is there anyone in your life that is hurting or threatening you in anyway? no 05/31/2024 Physical Indicators of Abuse No evidence of phys ical abuse 05/31/2024 Sex and Gender Information Value Date Recorded Sex Assigned at Not on file Legal Sex Male 6:59 PM EDT Gender Identity Not on file Sexual Orientation Not on file Last Filed Vital Signs Vital Sign Reading Time Taken Comments Blood Pressure 133/64 06/03/2024 5:14 AM EDT Pulse 69 06/03/2024 5:14 AM EDT Temperature 36.8 C (98.2 F) 06/03/2024 5:14 AM EDT Respiratory Rate 19 06/03/2024 5:14 AM EDT Oxygen Saturation 96% 06/03/2024 5:14 AM EDT Inhaled Oxygen Concentration - - Weight 70.8 kg (156 lb 1.4 oz) 06/02/2024 5:14 A M EDT Height 177.8 cm (5' 10 ) 05/31/2024 12:57 PM EDT Body Mass Index 22.4 05/31/2024 12:57 PM EDT Plan of Treatment Health Maintenance Due Date Last Done Comments HIV screening 1957 Tetanus adult (Td q 10,TDAP once) 1964 Lipid disorder screening 1984 Pneumococcal Vaccine (50+ years) (2 of 2 - PCV) 12/26/2016 12/27/2015 Covid-19 vaccine series (3 - 2023- season) 2024 04/23/2024, 05/10/2022 Influenza vaccine 04/05/2025 04/23/2024, , 04/30/2022, Additional history exists Diabetes screening 06/03/2027 06/03/2024, 1 , 06/01/2024, Additional history exists Shingles vaccine (Shingrix) Completed 04/30/2022, 0 02/21/2022 RSV Immunization Completed 05/04/2024 Colon cancer screening, Colonoscopy Discontinued Meningococcal Vaccine Aged Out No nam velasquez eligible based on patient's age to complete this topic Procedures Procedure Name Priority Date/Time Associated Diagnosis Comments BASIC METABOLIC PANEL Routine 06/03/2024 5:07 AM EDT from Last 3 Months or Most Recently Relevant to Health Maintenance Results * (ABNORMAL) Basic metabolic panel (06/03/2024 5:07 AM EDT) Glucose 101 65 - 110 mg/dL 06/03/2024 6:57 AM [facility] Comment: Non-fastin-110 mg/dL Fasting (minimum 6 hrs): 65-99 mg/dL BUN 18 7 - 18 mg/dL 06/03/2024 6:57 AM [facility] Creatinine 0.74 0.70 - 1.30 mg/dL 06/03/2024 6:57 AM [facility] Sodium 135(L) 136 - 145 mmol/L 06/03/2024 6:57 AM [facility] Potassium 3.7 3.5 - 5.1 mmol/L 06/03/2024 6:57 AM EDT [facility] Chloride 101 98 - 107 mmol/L 06/03/2024 6:57 AM [facility] CO2 28 21 - 32 mmol/L 06/03/2024 6:57 AM [facility] Anion Gap 6 5 - 15 mmol/L 06/03/2024 6:57 AM [facility] Calcium 9.1 8.5 - 10.1 mg/dL 06/03/2024 6:57 AM [facility] eGFR (Creatinine) >60 >=60 mL/min/1.7 3m2 06/03/2024 6:57 AM [facility] Comment: [facility] utilizes CKD-EPI Creatinine 2020 to report eGFR. Values < 60 mL/min/1.73 m2 may indicate CKD if present for more than three months AND creatinine is at steady state. The eGFR provides a rough estimate of kidney function. For further guidance, please refer to the CKD: Adult Plumbing Assembler Signature pathway. Blood Venipuncture / Unknown 06/03/2024 5:07 AM EDT 06/03/2024 6:11 AM EDT us [facility] BLOOD ORDERABLES Final R esult [address] [address], [facility] [phone] from Last 3 Months or Most Recently Relevant to Health Maintenance Insurance [facility] on file MEDICARE on file MEDICARE on file MEDICARE Advance Directives * Full Code (Latest Code Status on File) Date Activated Date Inactivated Comments 05/31/2024 6:19 PM 06/03/2024 5:03 PM Question Answer Comments With Whom was the Code Status Discussed? Patient Care Teams Labor Expediter Relationship Specialty Start Date End Date Arturo Moctezuma MD [address] [phone] (Work) PCP - General Internal Medicine 05/31/24
--- OUTSIDE RECORDS SUMMARY | 2025-02-15 11:08 | XMS_ITS | Data Portability ---
Author Organization [facility], OFFICE Address [address] [facility] [address] [place] [phone] Assessment No assessment recorded. Plan of Treatment Reminders Order Date Submit Date Provider Last Modified By Organization Details Last Modified Time Details Appointments None record ed. Lab None record ed. Referral None record ed. Procedures None record ed. Surgeries None record ed. Imaging None record ed. Medication Orders None record ed. Patient TargetsNo targets recorded. Patient InstructionsNo instructions recorded. Reason for Referral None Reported. Problems Name Problem SNOMED Code Status Onset Date Resolution Date Notes Provider Name and Address Organization Details Recorded Time Localized, primary osteoarthriti s of the pelvic region and thigh [id number] Active Not Available [facility] 4 03:31:08 Problem Notes None recorded. Medical Equipment None Reported. Vitals Date Recorded Body height Body weight Body mass index (BMI) Systolic And Diastolic Provider Name and Address Organization Details Last Updated DateTime 03/13/2016 172.72 cm 02986.7 g 25.8 kg/m2 186/95 mm[Hg] [facility] 03/13/2016 14:36:34 Social History None recorded. Functional Status None recorded. Mental Status None recorded. Family History Nothing Reported. Medical History No medical history recorded. Past Encounters Encounter ID Performer Location Encounter Start Date Encounter Closed Date Diagnosis/Indication Diagnosis SNOMED-CT Code Diagnosis ICD10 Code Diagnosis Note [id number] Antonio Cates MD OFFICE [address] [facility], [address] [place] [address] Localized, primary osteoarthritis of the pelvic region and thigh [id number] Antonio Cates MD OFFICE [address] [facility], [address] [address] 12/09/2003 12:05:45 12/09/2003 12:05:51 Localized, primary osteoarthritis of the pelvic region and thigh [id number] Antonio Cates MD OFFICE [address] [address] 01/29/2005 12:39:43 01/29/2005 12:39:47 Localized, primary osteoarthritis of the pelvic region and thigh [id number] Antonio Cates MD OFFICE [address] [address] 02/27/2006 08:58:07 02/27/2006 09:32:16 Localized, primary osteoarthritis of the pelvic region and thigh [id number] Antonio Cates MD OFFICE [address] [address] 01/26/2008 09:00:48 01/26/2008 09:30:40 Localized, primary osteoarthritis of the pelvic region and thigh [id number] Health Concerns Section Related Observation LastModified by Organization Detai ls LastModified Time None Recorded Concern Status LastModified by Organization Details LastModified Time None Recorded Advance Directives Directive None Recorded Payers Insurance Date Sequence Insurance Name Policy Number Policy Gill Covered Member ID Gill Member ID Guarantor Name 09/28/2016 1 [facility] PLAN - NAVIGATOR - [facility] (PPO) [id number] Larry Middleton [id number] 09/28/2016 1 MED[place]: [employer]ATIONAL [employer] Larry Middleton Jr [id number] 09/28/2016 1 [facility] INDEMNITY PLAN - [facility] [id number] Larry Middleton [id number] 09/28/2016 2 [facility] [id number] Larry Middleton [id number]
== END 2025-02-15 10:26 | disposition home or self-care (01) ==
LOC: HO.BBR 10:25
PROVIDERS: Visit Provider Physician Assistant Medical
DX: Z13.89 Encounter for screening for other disorder (principal)

== ENCOUNTER 2025-03-22 12:44 | Outpatient (REF) | payer MEDICARE, OTHER, SELFPAY ==
--- OUTSIDE RECORDS SUMMARY | 2025-03-22 13:41 | XMS_ITS | Clinical Summary ---
Author Organization [facility] [employer] [facility] Address [address] [place] [place] [address] Phone Care Team Providers Care Packaging Clerk Name Role Phone Arturo Moctezuma MD Primary Care Provider [phone] Allergies No known active allergies Medications levothyroxine (SYNTHROID, LEVOTHROID) 112 mcg tablet Take 1 tablet (112 mcg total) by mouth 1 (one) time each day. Active apixaban (ELIQUIS) 5 mg tablet Take 1 tablet (5 mg total) by mouth 2 (two) times a day. 60 each 11 06/29/20 24 025 Active metoprolol tartrate (LOPRESSOR) 25 mg tablet Take 1 tablet (25 mg total) by mouth 2 (two) times a day. 60 each 11 06/29/20 24 025 Active aspirin 81 mg chewable tablet CHEW 1 TABLET BY MOUTH EVERY DAY 90 tablet 3 07/22/20 Active Additional Information Patient not taking.Reported on 11/09/2024 amoxicillin (AMOXIL) 500 mg capsuleIndication s:History of transcatheter aortic valve replacement (TAVR) Take 4 caps (2000 mg) 1 hour prior to procedure. 12 capsule 11 03/02/20 025 Active Problems Problem Noted Date Diagnosed Date [...] be an issue for him. Hereditary hemochromatosis ([facility] V24) 024 Assessment & Plan (06/11/2024 12:50 PM EST): The patient has hereditary hemochromatosis. He was followed by Dr. Roass in [place] until [facility]. I will ask Dr. Moctezuma to provide records. It may be helpful to involve a new addiction medicine physician. Carotid bruit 06/10/2024 Assessment & Plan (06/11/2024 [...] spot ECG 12 lead SVT (supraventricular tachycardia) ([facility] V24) 06/10/2024 Atrial flutter (CMS/HCC V24, CMS/HCC [...] office and the TAVR coordinators at the [facility] structural heart disease program. After all the [...] was asymptomatic until he recently presented to [facility] in [place], [place] with evidence of breathlessness and fatigue [...] for coronary angiography to be performed at by myself on June 25, 2024. He will stay on aspirin and will discontinue Eliquis 2 days prior to the procedure. A right radial approach will be utilized. I will also discuss his ongoing evaluation with one of my interventional colleagues and arrange outpatient consultation as a prelude a pre-TAVR CT scan and cardiac surgical consultation. Orders: Pulse oximetry, spot ECG 12 lead Encounters Date Type Department Care Team Description 03/02/2025 Telephone [facility] [address] [place] [address] Osiel Schafer MD 02/16/2025 Telephone [facility] [address] [place] [address] Osiel Schafer MD Other from Last 3 Months Medical History Medical History Date Comments IFG [...] 07/08/2022 Social Influencers of Health Screening 07/08/2022 Depression Screening 08/05/2024 COVID-19 Vaccine ( season) 2024 04/23/2024, 05/10/2022, 01/05/2021, Additional history exists Influenza Vaccine (#1) 2025 , 04/26/2023, 04/30/2022, Additional history exists Hypertension/CHF/CAD Annual BMP Blood Test 06/03/2025 06/03/2024, [...] currently active code status orders. Care Teams Packaging Clerk Relationship Specialty Start Date End Date Arturo Moctezuma MD [address] [place] [address] PCP - General Internal Medicine 06/05/24
--- OUTSIDE RECORDS SUMMARY | 2025-03-22 13:41 | XMS_ITS | Clinical Summary ---
Author Organization [address] Address [address] [place] [phone] Phone Care Team Providers Care Early Childhood Assistant Name Role Phone Arturo Moctezuma MD Primary Care Provider [phone] Allergies No known active allergies Medications levothyroxine [...] Years Used Date Smoking Tobacco: Never Assessed [facility] Utilities Answer Date Recorded In the past 12 months has [employer], [employer], oil, or water [employer] threatened to shut off services in your [...] your living situation today? I [facility] 05/31/2024 Housing Stability Not [...] 65 - 110 mg/dL 06/03/2024 6:57 AM [facility] Comment: Non-fastin-110 mg/dL Fasting (minimum 6 hrs): 65-99 mg/dL BUN 18 7 - 18 mg/dL 06/03/2024 6:57 AM [facility] Creatinine 0.74 0.70 - 1.30 mg/dL 06/03/2024 6:57 AM [facility] Sodium 135(L) 136 - 145 mmol/L 06/03/2024 6:57 AM [facility] Potassium 3.7 3.5 - 5.1 mmol/L 06/03/2024 6:57 AM EDT [facility] Chloride 101 98 - 107 mmol/L 06/03/2024 6:57 AM [facility] CO2 28 21 - 32 mmol/L 06/03/2024 6:57 AM [facility] Anion Gap 6 5 - 15 mmol/L 06/03/2024 6:57 AM [facility] Calcium 9.1 8.5 - 10.1 mg/dL 06/03/2024 6:57 AM [facility] eGFR (Creatinine) >60 >=60 mL/min/1.7 3m2 06/03/2024 6:57 AM [facility] Comment: [facility] utilizes CKD-EPI Creatinine 2020 to report eGFR. Values < 60 mL/min/1.73 m2 may indicate CKD if present for more than three months AND creatinine is at steady state. The eGFR provides a rough estimate of kidney function. For further guidance, please refer to the CKD: Adult Roll Up Guider Operator Signature pathway. Blood Venipuncture / Unknown 06/03/2024 5:07 AM EDT 06/03/2024 6:11 AM EDT us [facility] BLOOD ORDERABLES Final R esult [address] [id number], [facility] [phone] from Last 3 Months or Most Recently Relevant to Health Maintenance Insurance [facility] on file MEDICARE on file MEDICARE on file MEDICARE Advance Directives * Full Code (Latest Code Status on File) Date Activated Date Inactivated Comments 05/31/2024 6:19 PM 06/03/2024 5:03 PM Question Answer Comments With Whom was the Code Status Discussed? Patient Care Teams Early Childhood Assistant Relationship Specialty Start Date End Date Arturo Moctezuma MD [address] [phone] (Work) PCP - General Internal Medicine 05/31/24
== END 2025-03-22 12:45 | disposition home or self-care (01) ==
LOC: HO.BBR 12:44
PROVIDERS: Visit Provider Physician Assistant Medical
DX: Z13.89 Encounter for screening for other disorder (principal)

== ENCOUNTER 2025-05-13 09:40 | Outpatient (REF) | payer MEDICARE, OTHER, SELFPAY | END 2025-05-13 09:41 | disposition home or self-care (01) | LOC: HO.BBR 09:40 | PROVIDERS: Visit Provider Physician Assistant Medical | DX: Z13.89 Encounter for screening for other disorder (principal) ==